=== PATIENT | female | born 1995 | race African-American/Black ===

== ENCOUNTER 2018-09-24 16:12 | Emergency (ER) | payer OTHER ==
[2018-09-24 16:20] VITALS: TEMP 97.5; BMI 17.6
[2018-09-24] MEDS ORDERED: ONDANSETRON 4 MG/2 ML VIAL IVPUSH ONE (17:36)
[2018-09-24] MEDS ORDERED: SODIUM CHLORIDE 1,000 ML IV STA (17:36)
--- NOTE | 2018-09-24 17:36 | PDOC ---
History of Present Illness - General Chief Complaint: Nausea/Vomiting Stated Complaint: NAUSEA/ 7 WKS Time Seen by Provider: 09/24/18 17:23 History Source: Patient Exam Limitations: No Limitations - History of Present Illness Travel History: No Initial Comments: 09/24/18 17:31 HISTORY OF PRESENT ILLNESS: 23-year-old prima female with last menstrual period 08/03/18 presents emergency Department with 3 days of nausea and loss of appetite. Patient reports she's been having intermittent vomiting which has been nonbloody and nonbilious mostly undigested food. Patient reports although she does not have an appetite she is eating but has been mostly junk food. Patient denies any abdominal pain, dysuria, hematuria, vaginal bleeding, vaginal discharge, constipation, diarrhea or rectal bleeding. No recent travel or sick contacts. PAST MEDICAL HISTORY: Denies past medical history SURGICAL HISTORY: Denies ALLERGIES: No known drug allergies REVIEW OF SYSTEMS General/Constitutional: Denies fever or chills. Denies weakness, weight change. HEENT: Denies change in vision. Denies ear pain or discharge. Denies sore throat. Cardiovascular: Denies chest pain or shortness of breath. Respiratory: Denies cough, wheezing, or hemoptysis. Gastrointestinal: see HPI Genitourinary: Denies dysuria, frequency, or change in urination. Musculoskeletal: Denies joint or muscle swelling or pain. Denies neck or back pain. Skin and breasts: Denies rash or easy bruising. Neurologic: Denies headache, vertigo, loss of consciousness, or loss of sensation. Psychiatric: Denies depression or anxiety. Endocrine: Denies increased thirst. Denies abnormal weight change. Hematologic/Lymphatic: Denies anemia, easy bleeding, or history of blood clots. Allergic/Immunologic: Denies hives or skin allergy. Denies latex allergy. PHYSICAL EXAM General Appearance: Well-appearing, appropriately dressed. No apparent distress , no intoxication. Respiratory/Chest: Lungs CTAB. No shortness of breath, chest tenderness, respiratory distress, accessory muscle use. No crackles, rales, rhonchi, stridor , wheezing, dullness Cardiovascular: RRR. S1, S2. No JVD, murmur, bradycardia, tachycardia. Gastrointestinal/Abdominal: Normal bowel sounds. Abdomen soft, non-distended. No tenderness or rebound tenderness. No organomegaly, pulsatile mass, guarding, hernia, hepatomegaly, splenomegaly. Musculoskeletal/Extremities: Normal inspection. FROM of all extremities, normal capillary refill. Pelvis Stable. No CVA tenderness. No tenderness to extremities, pedal edema, swelling, erythema or deformity. Past History - Past Medical History Allergies/Adverse Reactions: Allergies Allergy/AdvReac Type Severity Reaction Status Date / Time No Known Allergies Allergy Verified 09/24/18 16:20 Home Medications: Ambulatory Orders Ondansetron [Zofran -] 4 mg PO TID #21 tablet 09/24/18 Prenat 115/Iron Fum/Folic/Dss [ 19 Tablet] 1 each PO 09/24/18 COPD: No - Reproductive History Is Patient Now?: Yes (#): 0 Para: 0 Therapeutic (s) & number: No Spontaneous : 0 - Suicide/Smoking/Psychosocial Hx Smoking History: Never smoked Information on smoking cessation initiated: No Hx Alcohol Use: No Drug/Substance Use Hx: No Substance Use Type: None *Physical Exam - Vital Signs Last Vital Signs Temp Pulse Resp BP Pulse Ox 97.5 F L 72 18 109/61 100 09/24/18 16:17 09/24/18 16:17 09/24/18 16:17 09/24/18 16:17 09/24/18 16:17 ED Treatment Course - LABORATORY CBC & Chemistry Diagram: 09/24/18 18:14 09/24/18 18:14 Medical Decision Making - Medical Decision Making 09/24/18 17:34 A/P: 23-year-old woman with 3 days of nausea and vomiting Although this is likely morning sickness the differential diagnosis does include urinary tract infection, gastroenteritis, hyperemesis gravidarum. Likely hyperemesis this patient has not been vomiting frequently enough. 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 Reassess 09/24/18 20:17 Laboratory Tests 09/24/18 09/24/18 09/24/18 18:14 18:14 18:14 WBC 11.4 H Hgb 13.6 Hct 42.7 Plt Count 227 Sodium 138 Potassium 3.8 Chloride 106 Carbon Dioxide 27 BUN 7.2 Creatinine 0.6 Random Glucose 108 H Beta HCG, Quant 20984.0 Urine Color Yellow Urine Appearance Clear Urine pH 5.5 Ur Specific [place] 1.024 Urine Protein Negative Urine Glucose (UA) Negative Urine Ketones Trace H Urine Blood Negative Urine Nitrite Negative Urine Bilirubin Negative Urine Urobilinogen 1.0 Ur Leukocyte Esterase Negative Pt reports improvement and is tolerating PO's. Discharge home. *DC/Admit/Observation/Transfer Diagnosis at time of Disposition: Nausea and vomiting during prior to 22 weeks gestation - Discharge Dispostion Disposition: HOME Condition at time of disposition: Fair Decision to Admit order: No - Prescriptions Prescriptions: Ondansetron [Zofran -] 4 mg PO TID #21 tablet - Referrals - Patient Instructions Printed Discharge Instructions: DI for Morning Sickness Additional Instructions: Follow up with you OB on Wednesday as previously scheduled. Take Zofran 4mg every 8 hours as needed for nausea or vomiting. return to ER for any new or worsening symptoms. - Post Discharge Activity
[2018-09-24] MEDS ORDERED: ONDANSETRON 4 MG/2 ML VIAL ONE (17:57)
[2018-09-24 18:24] LABS: BASO % 0.6 % (0-2.0); EOS % 2.8 % (0-4.5); HEMATOCRIT 42.7 % (32.4-45.2); HEMOGLOBIN 13.6 GM/dL (10.7-15.3); LYMPH % 26.5 % (8-40); MCH 28.1 pg (25.7-33.7); MEAN PLT VOLUME 8.6 fl (7.5-11.1); MONO % 7.2 % (3.8-10.2); NEUT % 62.9 % (42.8-82.8); RBC 4.85 M/mm3 (3.60-5.2); RDW 13.2 % (11.6-15.6); WHITE BLOOD COUNT 11.4 K/mm3 (4.0-10.0)
[2018-09-24 18:28] LABS: PH,URINE 5.5 (5.0-8.0); URINE APPEARANCE CLEAR; URINE BILIRUBIN NEGATIVE (NEGATIVE); URINE COLOR YELLOW; URINE GLUCOSE (UA) NEGATIVE (NEGATIVE); URINE KETONE TRACE (NEGATIVE); URINE LEUK ESTERASE NEGATIVE (NEGATIVE); URINE NITRITE NEGATIVE (NEGATIVE); URINE PROTEIN NEGATIVE (NEGATIVE)
[2018-09-24 18:53] LABS: PLATELET COUNT 227 K/MM3 (134-434)
[2018-09-24 20:00] LABS: BILIRUBIN,TOTAL 0.3 mg/dL (0.2-1); BLOOD UREA NITROGEN 7.2 mg/dL (7-18); CREATININE 0.6 mg/dL (0.55-1.3); POTASSIUM 3.8 mmol/L (3.5-5.1)
[2018-09-24 20:47] VITALS: BP 115/65; PULSE 73
== END 2018-09-24 20:46 | disposition home or self-care (01) ==
LOC: JER 16:12
PROC: 3E0337Z Introduction of Electrolytic and Water Balance Substance into Peripheral Vein, Percutaneous Approach (ICD-10-PCS; principal; 2018-09-24)
PROC: 3E033GC Introduction of Other Therapeutic Substance into Peripheral Vein, Percutaneous Approach (ICD-10-PCS; 2018-09-24)
DX: O26.891 Other specified pregnancy related conditions, first trimester (principal); O21.0 Mild hyperemesis gravidarum; Z3A.01 Less than 8 weeks gestation of pregnancy
CPT/HCPCS: 36415; 80053; 81003; 83690; 84702; 85025; 87086; 87186; 96361; 96374; 99282-25; J7030

== ENCOUNTER 2023-09-11 16:36 | Emergency (ER) | payer OTHER ==
[2023-09-11 16:47] VITALS: BP 104/55; PULSE 92; RESP 20; TEMP 98.5; BMI 22.4
[2023-09-11 17:22] LABS: EPI CELLS >36 /uL (0-25.1); HYALINE CASTS 18 /uL (0-3.1); PH,URINE 5.5 (5.0-8.0); URINE APPEARANCE CLOUDY; URINE BACTERIA 1434 /uL (0-1359); URINE BILIRUBIN 1+ (NEGATIVE); URINE COLOR DK YELLOW; URINE GLUCOSE (UA) NEGATIVE (NEGATIVE); URINE KETONE TRACE (NEGATIVE); URINE LEUK ESTERASE 2+ (NEGATIVE); URINE NITRITE NEGATIVE (NEGATIVE); URINE PROTEIN 1+ (NEGATIVE); URINE RBC 8 /uL (0-23.9); URINE WBC 272 /uL (0-25.8)
[2023-09-11 17:54] LABS: YEAST MODERATE (NEGATIVE)
[2023-09-11] MEDS ORDERED: CEPHALEXIN MONOHYDRATE 500 MG CAPSULE (UD) ONE (18:44)
[2023-09-11] MEDS: CEPHALEXIN MONOHYDRATE 500 MG CAPSULE (UD) PO ONE (18:56)
[2023-09-11] MEDS ORDERED: MICONAZOLE NITRATE 2% VAGINAL CREAM 45 GM TUBE VG SCH (22:00)
== END 2023-09-11 18:55 | disposition home or self-care (01) ==
LOC: JERFT 16:36
DX: O23.599 Infection of other part of genital tract in pregnancy, unspecified trimester (principal); B37.31 Acute candidiasis of vulva and vagina; Z3A.00 Weeks of gestation of pregnancy not specified
CPT/HCPCS: 36415; 81003; 84703; 87070; 87077; 87086; 87205; 87491; 87591; 87661; 99283-25